=== PATIENT | female | born 1985 | race Caucasian/White ===

== ENCOUNTER → 2025-08-24 13:21 | Outpatient (REF) | payer OTHER, SELFPAY | LOC: HWRAD 13:21 | PROVIDERS: ATTENDING PHYSICIAN Nurse Practitioner Adult Health; FAMILY PHYSICIAN Physician Assistant Medical | DX: N93.9 Abnormal uterine and vaginal bleeding, unspecified (principal) | CPT/HCPCS: 76830; 76856 ==